=== PATIENT | male | born 1950 | race Caucasian/White ===

== ENCOUNTER 2017-07-14 10:05 | Emergency (ER) | payer OTHER ==
[~2017-07-14] VITALS: Ht 172.7 cm; Wt 90.7 kg
[2017-07-14] MEDS ORDERED: HYZAAR 100-251 EACH PO (10:28)
[2017-07-14] MEDS ORDERED: JANUMET XR 50-1 EAC1 PO (10:29)
[2017-07-14] MEDS ORDERED: TOPROL XL50 M1 PO (10:30)
[2017-07-14] MEDS ORDERED: TAMS0.4C PO (10:30)
== END 2017-07-14 14:41 | disposition home or self-care (01) ==
LOC: ER 10:05
DX: K52.9 Noninfective gastroenteritis and colitis, unspecified (principal)

== ENCOUNTER → 2019-06-15 | Emergency (ER) | payer OTHER ==
[~2019-06-15] VITALS: Ht 175.3 cm; Wt 92.5 kg
[~2019-06-15] MED LIST: HYZAAR 100-251 EACH PO; JANUMET XR 50-1 EAC1 PO; STEGLATRO15 MG PO; TAMS0.4C PO; TOPROL XL50 M1 PO
== END | disposition home or self-care (01) ==
LOC: ER 01:34
DX: K57.92 Diverticulitis of intestine, part unspecified, without perforation or abscess without bleeding (principal); K59.09 Other constipation